=== PATIENT | female | born 1940 | race Caucasian/White ===

== ENCOUNTER → 2017-01-05 | Outpatient (CLI) | payer OTHER, MEDICARE | LOC: CIMAGING 11:10 | DX: Z12.31 Encounter for screening mammogram for malignant neoplasm of breast (principal) | CPT/HCPCS: G0202 ==

== ENCOUNTER 2017-01-28 19:14 | Emergency (ER) | payer OTHER, MEDICARE ==
[2017-01-28 19:42] VITALS: TEMP 98.4
[2017-01-28] MEDS ORDERED: IPRATROPIUM/ALBUTEROL 3 ML DEYVIAL IH ONE (19:51)
--- NOTE | 2017-01-28 20:03 | EDPHY ---
H & P Stated Complaint: cough and congestion for 1 week Time Seen by Provider: 01/28/17 19:48 HPI/ROS: This patient complains of wheezing that started last night and persists this morning. She states the wheezing is accompanied by some mild dyspnea that has increased since this morning. She explains this in the setting of a chronic cough for the past 9 years with worsening over the past few months. She did see Dr. Capps, short piece handler January 06 who found no significant findings during the workup per their report. She also saw her primary care physician, Dr. bryant yesterday at [facility] and was diagnosed with URI at that time. She had a negative rapid strep in his office as well. ROS: No recent fevers or chills. She does have mild fatigue. HEENT: Minimal nasal congestion. No sinus pain. Currently no sore throat. Pulmonary: No pleuritic pain. No respiratory distress. Cardiovascular: No significant chest pain or heart palpitations. No lightheadedness. No lower extremity swelling. GI: No belly pain. Normal bowel movements : No complaints Integumentary: No skin rash or pallor, no diaphoresis Neuro: No complaints 10 point ROS is otherwise negative Source: Patient, Family (The patient is accompanied by her daughter who also provides history.) Exam Limitations: No limitations - Personal History Current Tetanus Diphtheria and Acellular Pertussis (TDAP): Yes Tetanus Vaccine Date: unsure - Medical/Surgical History PMH: Hypothyroid GERD Hypertension Hx Asthma: No Hx Chronic Respiratory Disease: No Hx Diabetes: No Hx Cardiac Disease: No Hx Renal Disease: No Hx Cirrhosis: No Hx Alcoholism: No Hx HIV/AIDS: No Hx Splenectomy or Spleen Trauma: No Other PMH: HTN/,HIGH CHOLESTEROL,GALLBLADDER,HIP SURGERY,SCOLIOSIS,OSTEOPOROSIS, GERD - Family History Significant Family History: No pertinent family hx - Social History Smoking Status: Never smoked (However the patient was exposed to secondhand smoke from the time she was a child through her father smoking and later others in her family.) Alcohol Use: None - Physical Exam Exam: Vital signs notable for hypoxia with an O2 sat of 87% on room air General Appearance: Alert, no distress. Eyes: Pupils equal and round no pallor or injection. ENT, Mouth: Mucous membranes moist. Respiratory: Bilateral expiratory wheeze and mild rhonchi bilaterally. Cardiovascular: Regular rate and rhythm. No murmur gallop rub. No JVD. No peripheral edema. Gastrointestinal: Abdomen is soft and nontender, no masses, bowel sounds normal. Neurological: GCS 15 with no focal sensory or motor deficits. Skin: Warm and dry, no rashes. Musculoskeletal: Neck is supple nontender. Extremities are symmetrical, full range of motion. Psychiatric: Mood and affect normal. DIFFERENTIAL DIAGNOSIS: After history and physical exam differential diagnosis was considered for bronchitis, pneumonia, CHF, Constitutional: Initial Vital Signs Temperature (C) 36.9 C 01/28/17 19:35 Heart Rate 65 01/28/17 19:35 Respiratory Rate 16 01/28/17 19:35 Blood Pressure 137/80 H 01/28/17 19:35 O2 Sat (%) 87 L 01/28/17 19:35 O2 Delivery Mode Nasal Cannula O2 (L/minute) 2 Allergies/Adverse Reactions: Sulfa (Sulfonamide Antibiotics) Allergy (Intermediate, Verified 01/28/17 19:32) Hives Home Medications: Medication Instructions Recorded ATACAND 07/11/10 FLOVENT HFA 07/11/10 LEVOXYL 07/11/10 OMEPRAZOLE 07/11/10 PRAVASTATIN SODIUM 07/11/10 Albuterol Hfa Anes Only [Proair 2 puffs IH Q4 PRN #1 mdi 01/28/17 Hfa Icu (*)] Azithromycin [Zithromax] 250 mg PO DAILY #4 tab 01/28/17 Valsartan 01/28/17 predniSONE 40 mg PO DAILY #10 tab 01/28/17 Medical Decision Making - Diagnostics EKG Interpretation: 12 lead EKG performed at 8:06 p.m. reveals sinus rhythm at 54 Intervals: Normal throughout [place]: P of 20, QRS of-23, T of 36 QRS meets voltage criteria for LVH. Overall assessment sinus rhythm with LVH. No acute ST abnormalities by my interpretation Imaging Results: Imaging Impressions Chest X-Ray 01/28/17 19:51 Impression: COPD. No acute pneumonia. COPD, no acute pneumonia. The x-ray was read primarily by the radiologist and also reviewed. ED Course/Re-evaluation: After reviewing EKG with no ischemic findings We proceeded with DuoNeb followed by albuterol neb followed by Xopenex. She has increased aeration decreased wheeze both persistent hypoxia. She has no findings that would suggest PE or other complicating factors not think her hypoxia attributable to COPD exacerbation/bronchitis. I counseled her and her daughter regarding this. The patient would like to go home and think is reasonable in this case. Will provide her with home O2 and close follow-up. - Data Points Medications Given: Discontinued Medications Albuterol (Proventil Neb) 3 ml IH EDNOW ONE Stop: 01/28/17 20:44 Last Admin: 01/28/17 20:43 Dose: 3 ml Albuterol/Ipratropium (Duoneb) 3 ml IH EDNOW ONE Stop: 01/28/17 19:52 Last Admin: 01/28/17 20:11 Dose: 3 ml Azithromycin (Zithromax) 500 mg PO EDNOW ONE PRN Reason: Protocol Stop: 01/28/17 20:49 Last Admin: 01/28/17 20:58 Dose: 500 mg Levalbuterol (Xopenex 1.25mg Neb) 1.25 mg IH EDNOW ONE Stop: 01/28/17 21:08 Last Admin: 01/28/17 21:11 Dose: 1.25 mg Prednisone (Prednisone) 40 mg PO EDNOW ONE Stop: 01/28/17 20:53 Last Admin: 01/28/17 20:58 Dose: 40 mg Departure - Departure Disposition: Home, Routine, Self-Care Clinical Impression: Acute bronchitis Qualifiers: Bronchitis organism: unspecified organism Qualified Code(s): J20.9 - Acute bronchitis, unspecified COPD (chronic obstructive pulmonary disease) Qualifiers: COPD type: COPD with acute exacerbation Qualified Code(s): J44.1 - Chronic obstructive pulmonary disease with (acute) exacerbation Condition: Good Instructions: Acute Bronchitis (ED) Additional Instructions: Diagnosis: Acute bronchitis 2. COPD Plan: Prednisone 40 mg a day for the next 5 days. Take subsequent doses the morning after breakfast. Albuterol inhaler with spacer for cough, wheeze or shortness of breath Home oxygen at 2 L Humidifier Follow up with primary care physician in 2 to 5 days for recheck. Return here for any significant worsening despite treatment plan Referrals: Gomez Li MD [Primary Care Provider] - As per Instructions Prescriptions: Albuterol Hfa Anes Only [Proair Hfa Icu (*)] 2 puffs IH Q4 PRN #1 mdi PRN Reason: Wheezing Azithromycin [Zithromax] 250 mg PO DAILY #4 tab predniSONE 40 mg PO DAILY #10 tab
--- NOTE | 2017-01-28 20:07 | CPEKG ---
Heart Rate: 54 RR Interval: 1111 P-R Interval: 164 QRSD Interval: 88 QT Interval: 464 QTC Interval: 440 P Howe: 20 QRS Howe: -23 T Wave Howe: 36 EKG Severity - ABNORMAL ECG - EKG Impression: SINUS RHYTHM EKG Impression: LVH WITH SECONDARY REPOLARIZATION ABNORMALITY Electronically Signed By: Newton Rose 28-Jan-2017 22:50:10
[2017-01-28] MEDS ORDERED: ALBUTEROL 3 ML DEYVIAL ONE (20:41)
[2017-01-28] MEDS ORDERED: ALBUTEROL 3 ML DEYVIAL IH ONE (20:43)
[2017-01-28] MEDS ORDERED: AZITHROMYCIN 250 MG TAB PO ONE (20:48)
[2017-01-28] MEDS ORDERED: predniSONE 20 MG TAB PO ONE (20:52)
[2017-01-28 21:00] VITALS: RESP 18
[2017-01-28] MEDS ORDERED: LEVALBUTEROL 1.25 MG/3 ML DEYVIAL IH ONE (21:07)
[2017-01-28] MEDS ORDERED: ALBUTEROL INH PREPACK MDI TAKEHOME ONE ×2 (22:08→22:15)
[2017-01-28 22:33] VITALS: BP 142/75; PULSE 80; O2SAT 94
== END 2017-01-28 22:15 | disposition home or self-care (01) ==
LOC: CED 19:14
DX: J44.1 Chronic obstructive pulmonary disease with (acute) exacerbation (principal); J20.9 Acute bronchitis, unspecified; I10 Essential (primary) hypertension
CPT/HCPCS: 71020-PO

== ENCOUNTER → 2017-05-26 | Outpatient (CLI) | payer OTHER, MEDICARE | LOC: FIMAGING 09:19 | PROVIDERS: ATTEND Internal Medicine Critical Care Medicine | DX: K21.9 Gastro-esophageal reflux disease without esophagitis (principal); K44.9 Diaphragmatic hernia without obstruction or gangrene ==

== ENCOUNTER → 2017-10-13 | Outpatient (CLI) | payer OTHER, MEDICARE ==
[~2017-10-13] MED LIST: IOPAMIDOL (ISOVUE 370) 100 ML BTL IV ONE
== END ==
LOC: CIMAGING 09:13
PROVIDERS: ATTEND Physician Assistant
DX: R05 Cough (principal); R06.00 Dyspnea, unspecified; R09.02 Hypoxemia; R59.0 Localized enlarged lymph nodes; K44.9 Diaphragmatic hernia without obstruction or gangrene; J90 Pleural effusion, not elsewhere classified; I25.10 Atherosclerotic heart disease of native coronary artery without angina pectoris
CPT/HCPCS: 71275; Q9967

== ENCOUNTER → 2017-11-18 | Outpatient (CLI) | payer OTHER, MEDICARE | LOC: BHFA 10:00 | PROVIDERS: ATTEND Internal Medicine Cardiovascular Disease | DX: I10 Essential (primary) hypertension (principal); R06.02 Shortness of breath ==

== ENCOUNTER → 2017-12-07 | Outpatient (CLI) | payer OTHER, MEDICARE | LOC: BHFA 14:00 | PROVIDERS: ATTEND Internal Medicine Cardiovascular Disease | DX: R06.09 Other forms of dyspnea (principal); I25.10 Atherosclerotic heart disease of native coronary artery without angina pectoris | CPT/HCPCS: 78452; 93017; A9500; J2785 ==

== ENCOUNTER → 2018-01-06 | Outpatient (CLI) | payer OTHER, MEDICARE | LOC: CIMAGING 09:24 | PROVIDERS: ATTEND Family Medicine Geriatric Medicine | DX: Z12.31 Encounter for screening mammogram for malignant neoplasm of breast (principal) ==